=== PATIENT | male | born 1955 | race Caucasian/White ===

== ENCOUNTER 2017-09-27 09:41 | Inpatient (IN) | payer OTHER ==
[2017-09-27 10:15] LABS: Base Excess (BEa) 2.2 mEq/L (0 (+/-) 2.5); CO2 Tension 33.5 mmHg (35.0-45.0); Carboxyhemoglobin (COHb) 1.1 gm% (0.0-3.0); Hematocrit-ABG 44.6 % (42.0-52.0); Hemoglobin (Hb) 14.4 g/dL (14.0-18.0); O2 Tension (PaO2) 91.5 mmHg (80.0-100.0); pH, Arterial 7.49 (7.35-7.45)
[2017-09-27] MEDS ORDERED: levETIRAcetam In NaCl (Iso-Os) 1,000 MG in Premix Bag 1 BAG IVPB SCH (10:15)
[2017-09-27 10:16] LABS: Analyzer IN Cardio ER; Calcium, Ionized 1.1 mmol/L (1.12-1.30); Puncture Site RRA
[2017-09-27] MEDS ORDERED: Carbidopa/Levodopa 25-100 mg Tablet PER TUBE SCH (10:30)
--- NOTE | 2017-09-27 10:49 | RAD ---
PORTABLE AP CHEST: Date: 09/27/17 HISTORY: Intubated. COMPARISON: None available. FINDINGS: Endotracheal tube is noted in place with tip overlying the T4 vertebral body and well above the level of the hao. Cardiac silhouette and pulmonary vasculature are within normal limits. The lungs are clear. Osseous structures are intact. IMPRESSION: Endotracheal tube noted in place. There is no evidence of an acute cardiopulmonary process. POS: [facility]
[2017-09-27 10:56] LABS: Bilirubin Negative (Negative); Blood, Urine Negative (Negative); Glucose, Urine (Dipstick) Negative (Negative); Leukocyte Negative (Negative); Nitrite Negative (Negative); Protein, Urine (Dipstick) Negative (Neg-Trace); pH, Urine 6.5 (5.0-9.0)
[2017-09-27 11:00] LABS: Clarity Clear (Clear)
[2017-09-27 11:28] LABS: ALT (SGPT) 7 U/L (8-55); AST (SGOT) 12 U/L (5-34); Albumin 3.3 g/dL (3.4-4.8); Alkaline Phosphatase 72 U/L (40-150); Anion Gap 18 mmol/L (10-20); BUN (Urea Nitrogen) 9 mg/dL (8.4-25.7); Bilirubin, Total 0.7 mg/dL (0.2-1.2); CK (CPK) 181 U/L (30-200); Calc. Creatinine Clearance 0 mL/min (70-130); Calcium 8.6 mg/dL (7.8-10.44); Carbon Dioxide 22 mmol/L (23-31); Chloride 103 mmol/L (98-107); Estimated GFR-MDRD Greater than 90; Globulin 3.7 g/dL (2.4-3.5); Glucose 105 mg/dL (80-115); Lipase 15 U/L (8-78); Magnesium 1.8 mg/dL (1.6-2.6); Potassium 3.8 mmol/L (3.5-5.1); Sodium 139 mmol/L (136-145)
[2017-09-27 11:29] LABS: CKMB 1.6 ng/mL (0-6.6)
[2017-09-27 11:34] LABS: #Lymphocytes 1.2 thou/uL (1.20-3.40); #Monocytes 0.6 thou/uL (0.11-0.59); #Neutrophils 7.1 thou/uL (1.40-6.50); %Basophils 0.1 % (0.0-1.0); %Eosinophils 0.4 % (0.0-10.0); %Lymphocytes 13.1 % (21.0-51.0); %Monocytes 6.5 % (0.0-10.0); %Neutrophils 79.8 % (42.0-75.0); Hemoglobin 15.6 g/dL (14.0-18.0); Mean Corpuscular HGB CONC 31.9 g/dL (32.0-36.0); Mean Corpuscular Hemoglobin 31.2 pg (27.0-31.0); Mean Corpuscular Volume 97.8 fl (80.0-94.0); Mean Platelet Volume 6.7 fL (7.4-10.4); Platelet Count 226 thou/uL (130-400); RBC Distribution Width 12.2 % (11.5-14.5); White Blood Cell (WBC) Count 8.9 thou/uL (4.8-10.8)
[2017-09-27 11:45] LABS: INR-International Normal Ratio 1.8
[2017-09-27 11:46] LABS: PTT 36.5 SEC (22.9-36.1)
[2017-09-27] MEDS ORDERED: Lidocaine 1% PF 5 ML VIAL ONE (12:00)
[2017-09-27] MEDS ORDERED: Senokot 8.6 MG TAB PO PRN (12:11)
[2017-09-27] MEDS ORDERED: Bisacodyl 10 MG SUPP PR PRN (12:11)
[2017-09-27] MEDS ORDERED: Acetaminophen 650 MG Suppository PR PRN (12:11)
[2017-09-27] MEDS ORDERED: Ondansetron ODT 4 MG TAB PO PRN (12:11)
[2017-09-27] MEDS ORDERED: Ondansetron PF 4 MG/2 ML Vial IVP PRN (12:11)
[2017-09-27] MEDS ORDERED: Acetaminophen 325 MG TAB PO PRN (12:11)
[2017-09-27] MEDS ORDERED: Calcium Carbonate 500 MG ChewTAB PO PRN (12:11)
[2017-09-27] MEDS ORDERED: VANCOMYCIN IVPB PRN (12:18)
[2017-09-27] MEDS ORDERED: ABX IVPB PRN (12:18)
[2017-09-27] MEDS ORDERED: Sedation Protocol FS ONE (12:19)
[2017-09-27] MEDS ORDERED: CCU Electrolyte Replacement 1 EACH IVPB ONE (12:19)
[2017-09-27] MEDS ORDERED: Lacri-Lube Opth Oint 3.5 GM TUBE EA EYE PRN (12:19)
[2017-09-27] MEDS ORDERED: Vancomycin HCl 1 GM in Premix Bag 1 BAG IVPB SCH (12:30)
[2017-09-27] MEDS ORDERED: Magnesium 2 GM/NS 0.9% 100 ML 2 GM in Premix Bag 1 BAG IVPB PRN (12:33)
[2017-09-27] MEDS ORDERED: Potassium Phosphate 12 MMOL in Sodium Chloride 0.9% 250 ML 250 ML IV PRN (12:33)
[2017-09-27] MEDS ORDERED: Magnesium Oxide 400 MG TAB PO PRN ×2 (12:33)
[2017-09-27] MEDS ORDERED: Potassium Phosphate 9 MMOL in Sodium Chloride 0.9% 100 ML IVPB PRN (12:33)
[2017-09-27] MEDS ORDERED: Potassium Chloride 20 MEQ TAB PO PRN (12:33)
[2017-09-27] MEDS ORDERED: Potassium Phosphate 15 MMOL in Sodium Chloride 0.9% 250 ML 250 ML IV PRN (12:33)
[2017-09-27] MEDS ORDERED: CCU ELECTROLYTE REPLACEMENT PROTOCOL FS PRN (12:33)
[2017-09-27] MEDS ORDERED: Potassium Chloride 40 MEQ in Premix Bag 1 BAG IVPB PRN (12:33)
[2017-09-27] MEDS ORDERED: Fentanyl BOLUS 250 ML IVPB PRN (12:34)
[2017-09-27] MEDS ORDERED: DISCONTINUE PREVIOUS NARCOTIC PAIN MEDICATIONS AND BENZODIAZEPINES FS SCH (12:34)
[2017-09-27] MEDS ORDERED: Propofol 1,000 MG/100 ML VIAL IV PRN (12:34)
[2017-09-27] MEDS ORDERED: Lorazepam 2 MG/ML VIAL SLOW IVP PRN ×2 (12:34→14:35)
[2017-09-27] MEDS ORDERED: Acetaminophen 650 MG/20.3 ML UDCUP PO PRN (12:47)
[2017-09-27] MEDS ORDERED: Ampicillin 2 GM, Syringe 5.2 ML in Sterile Water 14.8 ML SLOW IVP SCH (13:00)
[2017-09-27] MEDS ORDERED: Ampicillin 2 GM in Sodium Chloride 0.9% 100 ML IVPB SCH (13:00)
[2017-09-27 13:11] LABS: CSF Source CSF; Tube # 4
[2017-09-27 13:12] LABS: Clarity Clear (Clear); RBC Count - Manual 52 /cumm (None Seen); WBC/NonHematics Count - Manual 1 /cumm (0-5)
[2017-09-27 13:18] LABS: CSF, Glucose 67 mg/dl (40-70); CSF, Protein 49 mg/dL (15-40)
[2017-09-27 13:20] LABS: CSF Source CSF; Clarity Clear (Clear); Tube # 1; WBC/NonHematics Count - Manual 1 /cumm (0-5)
[2017-09-27 13:21] LABS: RBC Count - Manual 112 /cumm (None Seen)
[2017-09-27 13:37] LABS: Color Of CSF Supernatant COLORLESS (Colorless); Tube # 2; Unspun CSF Color COLORLESS (Colorless)
[2017-09-27] MEDS: Dextrose 5 %-0.45 % NaCl 1,000 ML IV SCH ×2 (14:13→21:08)
[2017-09-27 14:51] LABS: Amphetamine Not Detected (NotDetected); Barbiturates Screen Detected (NotDetected); Benzodiazepine Screen Detected (NotDetected); Cocaine Metabolite Screen Not Detected (NotDetected); Medtox Control Line Valid? VALID (VALID); Medtox Reader # READER 4; Methadone Not Detected (NotDetected); Methamphetamine Not Detected (NotDetected); Opiate Screen Not Detected (NotDetected); Oxycodone Screen Not Detected (NotDetected); Phencyclidine (PCP) Not Detected (NotDetected); THC/Cannabinoid Screen Not Detected (NotDetected); Tricyclic Screen Not Detected (NotDetected)
[2017-09-27] MEDS ORDERED: Vancomycin HCl 1.5 GM in Sodium Chloride 0.9% 250 ML 300 ML IVPB SCH (15:00)
[2017-09-27] MEDS ORDERED: FLU VACC QS2017-18 36 mo. & older 0.5 ML SYRINGE IM ONE (15:45)
[2017-09-27 18:23] LABS: Lactic Acid 1.3 mmol/L (0.5-2.2)
[2017-09-27] MEDS: Vancomycin HCl 1.5 GM in Sodium Chloride 0.9% 250 ML 300 ML IVPB SCH (20:59)
[2017-09-27] MEDS: Famotidine/PF 20 mg/2ml Vial SLOW IVP SCH (21:00)
[2017-09-27] MEDS: levETIRAcetam In NaCl (Iso-Os) 1,000 MG in Premix Bag 1 BAG IVPB SCH (21:00)
[2017-09-27] MEDS: Meropenem 1 GM in Syringe 20 ML SLOW IVP SCH (21:52)
--- NOTE | 2017-09-27 23:24 | CON ---
DATE OF CONSULTATION: 09/27/2017 He is intubated in the vent, on Versed 5 mg. History is that he is in the shelter system in [place] and presented with altered mental status and apparently was seizing. Emergent CT was done which was negative. Please note I reviewed his eileen red medical notes from [place] and from the ER notes over a year. He has been here since almost 0 9:30 in the morning, arrived in the ER about 01:30. He had a lumbar puncture done. 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 MEDICATIONS: There is a long list of medicine that was brought in from his shelter notes which includ es carbidopa/levodopa 3 times a day, Coreg 1 twice a day 6.25, Levitra 500 three tablets 2 times a da y, omeprazole, oxybutynin, Zoloft 50, thiamine. PAST MEDICAL HISTORY: 1. History of varicella in the past. 2. History of positive PPD. 3. History of dementia. 4. History of epilepsy. 5. History of possible Parkinson's disease on . PAST SURGICAL HISTORY: Unobtainable. FAMILY HISTORY: Unremarkable. SOCIAL HISTORY: Unobtainable. REVIEW OF SYSTEMS: Unobtainable. PHYSICAL EXAMINATION: VITAL SIGNS: Intubated in the vent. Blood pressure 130/80, pulse is 100, respiration is 20. HEENT: His right pupil is 2 mm. His left pupil is about 4 mm, much larger, when I decreased sedatio n, he was appropriate, opened his eyes. CHEST: Decreased breath sounds, no wheezing. CARDIAC: Normal S1, S2. No gallops. ABDOMEN: Soft, no masses. EXTREMITIES: Reveal trace edema. LABORATORY DATA: White count 8.8, H and H 15 and 48, platelet count 226. A pO2 is 91, pCO2 33, pH 7 .49, rate of 14, 35% tidal volume. The electrolytes are normal. His BNP is normal. X-ray was clear . Drug screen was unremarkable. Flu test was negative. IMPRESSION: 1. Status probably poor compliance to medication. I doubt he has got any infection etiology. 2. History of dementia. 3. History of presumed Parkinson's. PLAN: I agree with present coverage of antibiotics, Keppra. Minimize sedation for next 24 to 48 hours, try to wean and extubate, await result of spinal tap. DVT prophylaxis, proton pump inhibitors. This is a 45-minute critical care time.
[2017-09-28] MEDS: Vancomycin HCl 1.5 GM in Sodium Chloride 0.9% 250 ML 300 ML IVPB SCH ×2 (04:25→12:14)
[2017-09-28] MEDS: Dextrose 5 %-0.45 % NaCl 1,000 ML IV SCH ×3 (05:00→22:10)
[2017-09-28 05:13] LABS: Lactic Acid 1.8 mmol/L (0.5-2.2)
[2017-09-28 05:15] LABS: #Eosinphils 0.1 thou/uL (0.0-0.7); #Lymphocytes 1.1 thou/uL (1.20-3.40); #Monocytes 0.6 thou/uL (0.11-0.59); #Neutrophils 7.6 thou/uL (1.40-6.50); %Basophils 0.2 % (0.0-1.0); %Lymphocytes 12.1 % (21.0-51.0); %Monocytes 5.9 % (0.0-10.0); %Neutrophils 80.7 % (42.0-75.0); Hemoglobin 14.1 g/dL (14.0-18.0); Mean Corpuscular HGB CONC 32.6 g/dL (32.0-36.0); Mean Corpuscular Hemoglobin 31.7 pg (27.0-31.0); Mean Corpuscular Volume 97.2 fl (80.0-94.0); Mean Platelet Volume 7.1 fL (7.4-10.4); Platelet Count 212 thou/uL (130-400); RBC Distribution Width 12.1 % (11.5-14.5); Red Blood Cell (RBC) Count 4.43 mill/uL (4.70-6.10); White Blood Cell (WBC) Count 9.4 thou/uL (4.8-10.8)
[2017-09-28 05:17] LABS: ALT (SGPT) Less than 7 U/L (8-55); AST (SGOT) 10 U/L (5-34); Albumin 3.1 g/dL (3.4-4.8); Alkaline Phosphatase 62 U/L (40-150); Anion Gap 15 mmol/L (10-20); BUN (Urea Nitrogen) 6 mg/dL (8.4-25.7); Bilirubin, Total 0.7 mg/dL (0.2-1.2); Calc. Creatinine Clearance 155 mL/min (70-130); Calcium 8.6 mg/dL (7.8-10.44); Carbon Dioxide 23 mmol/L (23-31); Chloride 103 mmol/L (98-107); Estimated GFR-MDRD Greater than 90; Globulin 3.8 g/dL (2.4-3.5); Glucose 113 mg/dL (80-115); Magnesium 1.7 mg/dL (1.6-2.6); Protein, Total 6.9 g/dL (5.8-8.1); Sodium 138 mmol/L (136-145)
[2017-09-28 05:28] LABS: Potassium 2.9 mmol/L (3.5-5.1)
[2017-09-28] MEDS ORDERED: cefTRIAXone\\ROCEPHIN 2 GM in Sodium Chloride 0.9% 100 ML IVPB SCH ×2 (06:00→11:00)
[2017-09-28 06:13] VITALS: BP 133/67
[2017-09-28] MEDS: Potassium Chloride 40 MEQ in Sodium Chloride 0.9% 250 ML 250 ML IVPB PRN (06:28)
[2017-09-28] MEDS: Meropenem 1 GM in Syringe 20 ML SLOW IVP SCH ×3 (06:31→21:53)
[2017-09-28 07:40] LABS: Actual Bicarbonate (HCO3a) 19.6 mEq/L (22-26); Base Excess (BEa) 1.3 mEq/L (0 (+/-) 2.5); CO2 Tension 18.6 mmHg (35.0-45.0); Hematocrit-ABG 42.7 % (42.0-52.0); Hemoglobin (Hb) 14.3 g/dL (14.0-18.0); O2 Tension (PaO2) 75.9 mmHg (80.0-100.0); pH, Arterial 7.64 (7.35-7.45)
[2017-09-28 07:41] LABS: Calcium, Ionized 1.1 mmol/L (1.12-1.30); Potassium - ABG Lab 2.6 mmol/L (3.70-5.30); Puncture Site RRA
--- NOTE | 2017-09-28 08:15 | RAD ---
PORTABLE AP CHEST: Date: 09/28/17 HISTORY: On ventilator. Follow-up evaluation. COMPARISON: 09/27/17. FINDINGS: Endotracheal tube remains in place and unchanged in position. There has been interval placement of a nasogastric tube which courses into the left upper quadrant. Tip is not visualized. The most proximal side hole is also not well evaluated on this exam due to technique. Cardiac silhouette and pulmonary vasculature are within normal limits. Linear densities are seen at the left lung base, which may be related to mild atelectasis or scarring. The lungs are otherwise clear. There has been no other inter oz change. IMPRESSION: 1. Linear scarring versus atelectasis left lung base. There is otherwise no acute cardiopulmonary pr ocess. 2. Endotracheal tube is similar in position. POS: [facility]
--- NOTE | 2017-09-28 08:17 | HP ---
DATE OF ADMISSION: 09/27/2017 The patient was seen and examined on 09/27/2017. PRIMARY CARE PHYSICIAN: Patient is an inmate. REASON FOR ADMISSION/CHIEF COMPLAINT: Transfer from [facility] Emergency Room for seizure and respiratory failure. HISTORY OF PRESENT ILLNESS: Patient is a 62-year-old white male with history of seizure disorder and dementia, was brought in to [facility] with seizure. History obtained from the ER chart as patient is intubated and mechanically ventilated. Around 3 a.m., patient was found to have seizures. He was intubated prior to reaching emergency room. CT scan of the brain was negative for any acute findings. He was unresponsive. No other details available. PAST MEDICAL HISTORY: 1. Dementia. 2. Seizure disorder. PAST SURGICAL HISTORY: Unavailable at this time. ALLERGIES: The patient is allergic to PENICILLIN per ER record. CURRENT HOME MEDICATIONS: To be verified with the assisted system. SOCIAL HISTORY: Cannot be obtained from the patient due to current cognition. FAMILY HISTORY: Cannot be obtained from the patient due to current cognition. REVIEW OF SYSTEMS: Cannot be obtained from the patient due to current cognition. PHYSICAL EXAMINATION: VITAL SIGNS: In the emergency room showed temperature 100.1 rectal, respirations 17, pulse 71, blood pressure 145/81 with O2 saturation of 92% on mechanical ventilation. GENERAL: A 62-year-old male, intubated and sedated on mechanical ventilation. HEENT: Head is atraumatic, normocephalic. Pupils were sluggishly reacting to light. There was angle ract in the left eye. Pupils are unequal. NECK: Supple, no JVD, no neck stiffness. LUNGS: Coarse breath sounds bilaterally. No wheezing. Lungs were symmetrical. ABDOMEN: Soft. Bowel sounds present. No guarding or rigidity. HEART: S1 and S2 present. Regular rate and rhythm. No significant rubs or gallops appreciated. EXTREMITIES: No edema or calf tenderness. NEUROLOGIC: Examination could not be done due to sedation. PSYCHIATRIC: Examination could not be done due to sedation. SKIN: Warm and dry. LYMPH NODES: No palpable lymph nodes in the neck. PERIPHERAL VASCULAR: Radial pulses palpable bilaterally. MUSCULOSKELETAL: No joint swelling or tenderness. LABORATORY DATA AND IMAGING DATA: Urine drug screen was negative. WBC 7.2 with hemoglobin 14.9, dennys telet count 277. INR was 1.7 at outside facility. Electrolytes were essentially in normal range wit h creatinine 0.8, albumin 3.5. Urine drug screen positive for barbiturates. BNP was 167. Lactic ac id at [facility] was 3.2. Ammonia was 67 at [facility]. Telemetry monitoring by my review showed si nus rhythm. Chest x-ray by my review was negative for infiltrate. IMPRESSION: 1. Status epilepticus requiring intubation. 2. Acute respiratory failure secondary to #1, currently on mechanical ventilation. 3. History of seizure disorder. 4. Elevated troponins, probably secondary to demand ischemia, down trending. 5. History of dementia. 6. Coagulopathy of unclear etiology. 7. Elevated ammonia at outside facility. 8. Lactic acidosis, probably secondary to seizure. PLAN: Patient will be monitored in the Intensive Care Unit. Critical Care will be consulted. Lumba r puncture has been done. Neurology consult. We will continue Keppra 1000 mg twice a day. Empirica lly cover him on antibiotics with meropenem and vancomycin. Ventilation sedation protocol. Electrol yte replacement protocol. Recheck ammonia after 24-48 hours. Plan of care was discussed with the patient and the guards.
[2017-09-28] MEDS ORDERED: DC Sedation Protocol FS ONE (08:48)
[2017-09-28] MEDS: levETIRAcetam In NaCl (Iso-Os) 1,000 MG in Premix Bag 1 BAG IVPB SCH (08:50)
[2017-09-28] MEDS: Famotidine/PF 20 mg/2ml Vial SLOW IVP SCH ×2 (08:51→21:54)
[2017-09-28 12:07] LABS: INR-International Normal Ratio 1.6; Prothrombin Time 19.5 SEC (12.0-14.7)
[2017-09-28 12:08] LABS: PTT 39.7 SEC (22.9-36.1)
--- NOTE | 2017-09-28 12:13 | PRG ---
DATE OF SERVICE: 09/28/2017 SUBJECTIVE: This morning, he is encephalopathic on the vent. X-ray is clear. Normal seizure activi ty. OBJECTIVE: VITAL SIGNS: Blood pressure 128/69, pulse 79, respiratory rate 20. He is afebrile, 99. CHEST: Reveals decreased breath sounds, no wheezing. CARDIAC: Normal S1 and S2, no gallops. LABORATORY DATA: X-rays normal. White count 9000, H and H 14 and 43, platelet count normal. PO2 wa s 75, pCO2 57.4 at a rate of 14. Potassium 2.9, otherwise rest of his labs normal. CSF was unremarkable. No white cell, glucose protein was normal. IMPRESSION: 1. Apparently seizure activity. 2. Parkinson's. 3. Fever. 4. No evidence of meningitis. PLAN: I would deescalate his antibiotics. I did not see an obvious source of sepsis infection at th is time. Wean and extubate. Restart home medication including his seizure medication. We will follow. One-half hour critical care time.
[2017-09-28] MEDS: Carbidopa/Levodopa 25-250 mg Tablet PER TUBE SCH ×2 (16:05→21:54)
[2017-09-28] MEDS: Carvedilol 3.125 MG TAB PER TUBE SCH (16:14)
--- NOTE | 2017-09-28 16:42 | CON ---
DATE OF CONSULTATION: 09/28/2017 NEUROLOGY CONSULTATION CONSULTING PHYSICIAN: Hospitalist Service. IMPRESSION: 1. Seizure disorder. 2. Parkinson's disease. 3. Dementia. PLAN: 1. Continue Keppra 1000 mg twice a day. 2. Swallow evaluation. HISTORY OF PRESENT ILLNESS: Mr. Howe is an elderly gentleman, who was brought in to [facility] due to seizure activity. Reportedly, he has a history of seizures, but is uncertain as to how well they were controlled. He was apparently taking Keppra 500 mg twice a day prior to admission. He was transferred here for further care. He was given Versed in the emergency room as well as a marilu ding dose of Keppra 1000 mg IV. He has not had any further seizures since admission according to [facility] staff. He has not been cooperative and answering any questions. PAST MEDICAL HISTORY: As listed above. MEDICATIONS: Medication list was reviewed. SOCIAL HISTORY: He is an inmate. No tobacco or alcohol use is known. FAMILY HISTORY: Unknown. REVIEW OF SYSTEMS: Not obtainable. PHYSICAL EXAMINATION: VITAL SIGNS: Blood pressure 144/70, pulse 69, respirations 16. He is afebrile. HEENT: Pupils equal and reactive. Conjunctivae clear. NECK: No lymphadenopathy. EXTREMITIES: No edema or cyanosis. NEUROLOGIC: If we get him to speak few words here and there, but he would not follow commands and co operate in any way with answering questions as to his medical care. There is no facial asymmetry not ed. His muscle tone seemed to be relatively equal. I did not notice any tremor. LABORATORY STUDIES: Reviewed. SUMMARY: This is an elderly man with a reported history of seizures. Keppra has been increased to 1 000 twice a day, seems to be stable. I will continue the current regimen and determine whether his s wallowing is adequate.
[2017-09-28] MEDS: Oxybutynin 5 MG TAB PER TUBE SCH (21:54)
[2017-09-28] MEDS: levETIRAcetam In NaCl (Iso-Os) 1,500 MG in Premix Bag 1 BAG IVPB SCH (22:10)
--- NOTE | 2017-09-28 22:21 | PDOC.PN ---
- Subjective Encounter Start Date: 09/28/17 Encounter Start Time: 13:30 Patient seen and examined. Extubated. Not answering appropriately. No overnight events - Objective Resuscitation Status: Resuscitation Status FULL:Full Resuscitation MAR Reviewed: Yes Vital Signs & Weight: Vital Signs (12 hours) Temp Pulse Ox 09/28/17 16:00 98.9 F 09/28/17 12:00 98 Weight Weight 191 lb 12.835 oz Most Recent Monitor Data Heart Rate from ECG 90 NIBP 125/56 NIBP BP-Mean 72 Respiration from ECG 16 SpO2 98 I&O: 09/27/17 09/28/17 09/29/17 06:59 06:59 06:59 Intake Total 1782.3 1479 Output Total 1945 1070 Balance -162.7 409 Result Diagrams: 09/29/17 04:20 09/29/17 04:20 Additional Labs: Accuchecks 09/28/17 09/28/17 09/28/17 21:53 12:25 03:53 POC Glucose 119 H 143 H 104 09/27/17 23:56 POC Glucose 91 Radiology Reviewed by me: Yes (CXR - ?scarring at left base) EKG Reviewed by me: Yes (Tele SR) Phys Exam - Physical Examination Constitutional: NAD Respiratory: no wheezing, no rales, no rhonchi Symmetrical Cardiovascular: RRR, no rub Gastrointestinal: soft, non-tender, positive bowel sounds Musculoskeletal: no edema Neuro/Psych - Cannot assess due to current mentation Dx/Plan - Plan DVT proph w/SCDs IMPRESSION: 1. Status epilepticus requiring intubation. 2. Acute respiratory failure secondary to #1, currently on mechanical ventilation. 3. History of seizure disorder. 4. Elevated troponins, probably secondary to demand ischemia, down trending. 5. History of dementia. 6. Coagulopathy of unclear etiology. ?nutritional 7. Elevated ammonia at outside facility. 8. Lactic acidosis, probably secondary to seizure. PLAN: * Neuro input appreciated. * Cont Keppra * Add Dilantin - Pt was to be started on Dilantin per d/w RN with facility * Monitor for seizure * Extubated * PIER MASTER eval * Tube feeds if needed * Cont to monitor * Critical care following * Hold Heparin/Lovenox due to Coagulopathy Review of Systems - Review of Systems Other: Cannot obtain due to current cognition - Medications/Allergies Allergies/Adverse Reactions: Allergies Allergy/AdvReac Type Severity Reaction Status Date / Time Penicillins Allergy unknown Verified 09/27/17 13:42 Medications: Current Medications Acetaminophen (Tylenol) 650 mg MT Q4H PRN PRN Reason: Headache/Fever or Pain Acetaminophen (Tylenol Elixir) 650 mg PO Q6H PRN PRN Reason: Fever>101/MILD Pain Bisacodyl (Dulcolax) 10 mg MT Q24H PRN PRN Reason: Constipation Calcium Carbonate (Tums) 1,000 mg PO Q4H PRN PRN Reason: Heartburn or Indigestion Carbidopa/Levodopa (Sinemet 25-250) 1 tab PER TUBE TID [facility] Last Admin: 09/28/17 21:54 Dose: 1 tab Carvedilol (Coreg) 3.125 mg PER TUBE BID-WM [facility] Last Admin: 09/28/17 16:14 Dose: 3.125 mg Enoxaparin Sodium (Lovenox) 40 mg SC 0900 [facility] Famotidine (Pepcid) 20 mg SLOW IVP Q12HR [facility] Last Admin: 09/28/17 21:54 Dose: 20 mg Dextrose/Sodium Chloride (D5 1/2 Ns) 1,000 mls @ 125 mls/hr IV .Q8H [facility] Last Admin: 09/28/17 22:10 Dose: 1,000 mls Potassium Chloride 40 meq/ (Sodium Chloride) 270 mls @ 135 mls/hr IVPB ASDIR PRN PRN Reason: FOR SERUM K+ 2.5 - 3.5 Last Admin: 09/28/17 06:28 Dose: 270 mls Potassium Chloride 40 meq/ (Device) 100 mls @ 50 mls/hr IVPB ASDIR PRN PRN Reason: FOR SERUM K+ 2.5 - 3.5 Magnesium Sulfate 1 gm/ Sodium (Chloride) 102 mls @ 102 mls/hr IV PRN PRN PRN Reason: MAG LEVEL 1.4 - 2.0 Last Admin: 09/28/17 09:03 Dose: 102 mls Magnesium Sulfate 2 gm/ Device 100 mls @ 100 mls/hr IVPB ASDIR PRN PRN Reason: MAGNESIUM < 1.4 Potassium Phosphate 9 mmol/ (Sodium Chloride) 103 mls @ 25.75 mls/hr IVPB ASDIR PRN PRN Reason: Phosphate 1.0-1.8 Potassium Phosphate 12 mmol/ (Sodium Chloride) 254 mls @ 63.5 mls/hr IV ASDIR PRN PRN Reason: Serum phosphate 0.5-0.9 Potassium Phosphate 15 mmol/ (Sodium Chloride) 255 mls @ 63.75 mls/hr IV ASDIR PRN PRN Reason: Serum Phos < 0.5 Meropenem 1 gm/ Syringe 20 mls @ 240 mls/hr SLOW IVP Q8HR [facility] Last Admin: 09/28/17 21:53 Dose: 20 mls Levetiracetam 1,500 mg/ Device 100 mls @ 133.333 mls/hr IVPB BID [facility] Last Admin: 09/28/17 22:10 Dose: 100 mls Lorazepam (Ativan) 1 mg SLOW IVP Q15MIN PRN PRN Reason: Seizures Magnesium Oxide (Magnesium Oxide) 400 mg PO BIDPRN PRN PRN Reason: FOR SERUM MAG 1.4 - 2.0 Magnesium Oxide (Magnesium Oxide) 800 mg PO PRN PRN PRN Reason: FOR SERUM MAG < 1.4 Mineral Oil/White Petrolatum (Lacri-Lube Ointment) 0 gm EA EYE PRN PRN PRN Reason: Dry Eyes Miscellaneous Medication (Pharmacy To Dose) 1 each IVPB DAILYPRN PRN PRN Reason: LABS Miscellaneous Medication (Phos-Nak) 1 pkt PO TIDPRN PRN PRN Reason: FOR PHOS LEVEL 1.0 - 1.8 Miscellaneous Medication (Phos-Nak) 2 pkt PO TIDPRN PRN PRN Reason: FOR PHOS LEVEL 0.5 - 1.0 Ccu Electrolyte (Replacement Protocol) 0 each FS PRN PRN PRN Reason: FOR ELECTROLYTE REPLACEMENT Ondansetron HCl (Zofran Odt) 4 mg PO Q6H PRN PRN Reason: Nausea/Vomiting Ondansetron HCl (Zofran) 4 mg IVP Q6H PRN PRN Reason: Nausea/Vomiting Oxybutynin Chloride (Ditropan) 5 mg PER TUBE BID [facility] Last Admin: 09/28/17 21:54 Dose: 5 mg Phenytoin Sodium (Dilantin) 100 mg PER TUBE TID [facility] Last Admin: 09/28/17 21:55 Dose: 100 mg Potassium Chloride (K-Dur) 40 meq PO ASDIR PRN PRN Reason: FOR SERUM K+ 2.5 - 3.5 Potassium Chloride (Klor-Con) 40 meq PER TUBE ASDIR PRN PRN Reason: FOR SERUM K+ 2.5-3.5 Last Admin: 09/28/17 21:54 Dose: 40 meq Senna (Senokot) 2 tab PO HSPRN PRN PRN Reason: Constipation Sertraline HCl (Zoloft) 150 mg PER TUBE DAILY CECIL Sodium Chloride (Flush - Normal Saline) 10 ml IVF PRN PRN PRN Reason: Saline Flush Thiamine HCl (Thiamine) 100 mg PER TUBE DAILY CECIL
[2017-09-29 04:43] LABS: #Eosinphils 0.2 thou/uL (0.0-0.7); #Lymphocytes 0.7 thou/uL (1.20-3.40); #Monocytes 0.4 thou/uL (0.11-0.59); #Neutrophils 4.8 thou/uL (1.40-6.50); %Basophils 0.2 % (0.0-1.0); %Eosinophils 3.8 % (0.0-10.0); %Lymphocytes 10.9 % (21.0-51.0); %Monocytes 6.4 % (0.0-10.0); %Neutrophils 78.8 % (42.0-75.0); Hemoglobin 12.8 g/dL (14.0-18.0); Mean Platelet Volume 6.9 fL (7.4-10.4); Platelet Count 193 thou/uL (130-400); RBC Distribution Width 12.1 % (11.5-14.5)
[2017-09-29 05:20] LABS: ALT (SGPT) Less than 7 U/L (8-55); AST (SGOT) 10 U/L (5-34); Albumin 2.9 g/dL (3.4-4.8); Alkaline Phosphatase 52 U/L (40-150); Anion Gap 6 mmol/L (10-20); BUN (Urea Nitrogen) 4 mg/dL (8.4-25.7); Bilirubin, Total 0.5 mg/dL (0.2-1.2); Calc. Creatinine Clearance 166 mL/min (70-130); Carbon Dioxide 29 mmol/L (23-31); Chloride 109 mmol/L (98-107); Estimated GFR-MDRD Greater than 90; Globulin 3.4 g/dL (2.4-3.5); Glucose 115 mg/dL (80-115); Potassium 3.1 mmol/L (3.5-5.1); Protein, Total 6.3 g/dL (5.8-8.1); Sodium 141 mmol/L (136-145)
[2017-09-29] MEDS: Meropenem 1 GM in Syringe 20 ML SLOW IVP SCH (05:42)
[2017-09-29] MEDS: Carvedilol 3.125 MG TAB PER TUBE SCH ×2 (08:00→12:49)
--- NOTE | 2017-09-29 08:39 | PRG ---
DATE OF SERVICE: 09/29/2017 This morning he is awake, alert, responsive, in no distress. No further seizure activity. PHYSICAL EXAMINATION: VITAL SIGNS: Blood pressure 112/65, sats 90%, pulse 58, respirations 18. I's & O's have been good, 2430 in. CHEST: No wheezing. CARDIAC: Normal S1, S2. ABDOMEN: Soft, no masses. LABORATORY DATA: White count 6, H&H 12 and 38, platelet count normal. Electrolytes are normal. Mehran robiology: All cultures are negative. IMPRESSION: Seizure activity, no evidence of meningitis. PLAN: Discontinue all antibiotics. He can be transferred out of the ICU, transfer back to [facility].
[2017-09-29] MEDS ORDERED: Enoxaparin Sodium 40 MG/0.4 ML SYRINGE SC SCH (09:00)
[2017-09-29] MEDS: Dextrose 5 %-0.45 % NaCl 1,000 ML IV SCH ×3 (10:10→19:30)
[2017-09-29] MEDS: Carbidopa/Levodopa 25-250 mg Tablet PER TUBE SCH ×3 (10:11→19:29)
[2017-09-29] MEDS: levETIRAcetam In NaCl (Iso-Os) 1,500 MG in Premix Bag 1 BAG IVPB SCH ×2 (10:13→19:30)
[2017-09-29] MEDS: Oxybutynin 5 MG TAB PER TUBE SCH ×2 (10:23→19:31)
[2017-09-29] MEDS: Famotidine/PF 20 mg/2ml Vial SLOW IVP SCH (10:31)
[2017-09-29] MEDS: Potassium Chloride 40 MEQ in Sodium Chloride 0.9% 250 ML 250 ML IVPB PRN (10:48)
[2017-09-29] MEDS ORDERED: cefTRIAXone\\ROCEPHIN 1 GM in Sodium Chloride 0.9% 100 ML IVPB SCH (11:15)
[2017-09-29] MEDS ORDERED: cefTRIAXone\\ROCEPHIN 1 GM, Syringe 0.4 ML in Sterile Water 9.6 ML SLOW IVP SCH (12:00)
[2017-09-29 15:40] VITALS: BMI 24.5
--- NOTE | 2017-09-29 16:44 | DIS ---
DATE OF DISCHARGE: 09/29/2017 FOLLOWUP: Follow up with primary care physician and Neurology at the facility. Dilantin and Keppra level after 1 week is recommended. Primary care physician is advised to follow. INPATIENT CONSULTANTS: 1. Neurology, Dr. Marie. 2. Critical Care, Dr. Valencia. BRIEF HOSPITAL COURSE: The patient is a 62-year-old male with seizure disorder, who was brought in [facility] for seizure. He was intubated by EMS. Please refer to the history an d physical dated 09/27/2017 for further details. The patient was admitted to the Intensive Care Unit with a diagnosis of status epilepticus requiring mechanical intubation. His Keppra level was 37. According to the facility, the patient was supposed to be on Dilantin, which has not been started. He also received a loading dose of Dilantin. [facility] Kepp[facility] dose was 1500 b.i.d. The dose has been increased to 200 every morning and 1500 at night. He will also start Dilantin 300 mg at bedtime. He will follow up with Neurology after 1 week or so. Keppra and Dilantin level after 1 week is recommended, primary care physician is advised to follow. Infectious etiology has been ruled out. His CSF and blood cultures have been negative. Urine cultu re is positive for gram positive cocci and gram negative carina. His urinalysis; however, was negative for wbc and bacteria. He was on IV meropenem during this hospital stay, which will be changed to Kaveh trim. He has been cleared by consultants for discharge. FINAL DIAGNOSES: 1. Status epilepticus, resolved. 2. Acute respiratory failure secondary to status epilepticus, extubated yesterday. 3. History of seizure disorder. 4. Elevated troponins, probably secondary to demand ischemia. 5. Dementia. 6. Coagulopathy of unclear etiology, probably nutritional. 7. Elevated ammonia at the outside facility at 67. Repeat ammonia was normal. 8. Lactic acidosis secondary to seizure. 9. Urinary tract infection, suspected. 10. Hypokalemia. 11. Mild protein calorie malnutrition. Plan of care was discussed with the patient and he stated understanding. Total time coordinating the discharge of this patient was 38 minutes.
[2017-09-30 06:23] VITALS: TEMP 98.1
== END 2017-09-30 07:40 | DRG 208 ==
LOC: ERS 09:41 → CCU 11:41
PROVIDERS: ADMIT Internal Medicine; ATTEND Internal Medicine
PROC: 5A1945Z Respiratory Ventilation, 24-96 Consecutive Hours (ICD-10-PCS; principal; 2017-09-27)
PROC: 00JU3ZZ Inspection of Spinal Canal, Percutaneous Approach (ICD-10-PCS; 2017-09-27)
DX: J96.00 Acute respiratory failure, unspecified whether with hypoxia or hypercapnia (principal); D68.9 Coagulation defect, unspecified; G20 Parkinson's disease; E44.1 Mild protein-calorie malnutrition; N39.0 Urinary tract infection, site not specified; G40.901 Epilepsy, unspecified, not intractable, with status epilepticus; F02.80 Dementia in other diseases classified elsewhere, unspecified severity, without behavioral disturbance, psychotic disturbance, mood disturbance, and anxiety; Z88.0 Allergy status to penicillin; E87.6 Hypokalemia
CPT/HCPCS: 36415; 36416; 62270; 71045; 80053; 80177; 80185; 80306; 81003; 82140; 82550; 82553; 82805; 82945; 83605; 83690; 83735; 83880; 84157; 84484; 85025; 85610; 85730; 86140; 87040; 87070; 87077; 87086; 87186; 87205; 87633; 87798; 87804; 89051; 90471; 90682; 94002; 94003; 96365; 96366; 96367; 96374; 96375; A4216; G0008; G8996-GN-CL; G8997-GN-CJ; J0290; J0696; J1953; J2001; J2185; J2405; J2704; J3370; J3475; J3480; J7050; Q2009; Q2036; S0028

== ENCOUNTER 2018-11-08 16:55 | Inpatient (IN) | payer OTHER ==
[2018-11-08] MEDS ORDERED: Ondansetron PF 4 MG/2 ML Vial IVP PRN (17:00)
[2018-11-08] MEDS ORDERED: Ondansetron ODT 4 MG TAB SL PRN (17:00)
[2018-11-08] MEDS ORDERED: Acetaminophen 325 MG TAB PO PRN (17:00)
[2018-11-08] MEDS ORDERED: Acetaminophen 650 MG Suppository ONE (18:11)
--- NOTE | 2018-11-08 18:24 | PDOC.FPRHP ---
- History of Present Illness Chief Complaint: Seizures, pneumonia History of Present Illness: Mr Howe is a 63yo male with pmh epilepsy, Parkinson's, dementia, HTN presenting as a transfer from [facility] for pneumonia and seizures. He has a hx epilepsy treated with Keppra and Depakote. His levels were low at outside hospital. Pt has seizure at unit and was transferred to [facility]. There he had another seizure. According to documentation pt at baseline is A&O x1. In records EMS stated pt was found down foaming at mouth and has not been acting right since that time. According to security he is not at his baseline. Attempted to call unit but after multiple transfers was told medical staff have went home for the day that there is no one available to speak with. Only information obtainable from pt is that he is cold. ED Course: Versed 2mg, Ativan 0.5mg, Keppra 1000mg, Tylenol 650mg, Versed 2mg, 500ml bolus NS, Levaquin 500mg BNP 92 Valproic acid: 26.6 Phenytoin <1.0 CXR- findings suggestive of congestive failure Brain CT: limited study w/o evidence for mass producing intracranial hemorrhage Rapid flu neg - Allergies/Adverse Reactions Allergies Allergy/AdvReac Type Severity Reaction Status Date / Time Penicillins Allergy unknown Verified 09/27/17 13:42 - Home Medications Medication Instructions Recorded Confirmed Type Carbidopa/Levodopa 1 tablet PO TID 09/27/17 09/27/17 History [Carbidopa-Levodopa 25-250 Tab] Carvedilol [Coreg] 6.25 mg PO BID 09/27/17 09/27/17 History Omeprazole 20 mg PO DAILY 09/27/17 09/27/17 History Oxybutynin Chloride 5 mg PO BID 09/27/17 09/27/17 History Sertraline HCl 150 mg PO DAILY 09/27/17 09/27/17 History Thiamine HCl [B-1] 100 mg PO DAILY 09/27/17 09/27/17 History Phenytoin Sodium Extended 300 mg PO HS #1 cap 09/29/17 Rx [Dilantin] Sulfamethoxazole/Trimethoprim 1 tab PO BID #14 tab 09/29/17 Rx [Bactrim DS] levETIRAcetam [Keppra] 1,500 mg PO QAM #1 tablet 09/29/17 Rx levETIRAcetam [Keppra] 2,000 mg PO QPM #1 tablet 09/29/17 Rx - History PMHx: epilepsy, Parkinson's, dementia, HTN, inactive TB PSHx: Pacemaker placement FHx: Unable to obtain Social: Unable to obtain. Appears pt has not hx of smoking according to documents. - Review of Systems ROS unobtainable: due to mental status - Vital signs BP: 135/71 HR: 87 RR: 18 Tmax: 101 Pox: 99% on RA Wt: 77kg - Physical Exam Constitutional: NAD -Constitutional: Unable to state name. Able to follow some simple commands such as to open eyes HEENT: normocephalic and atraumatic, conjunctiva clear Neck: supple, trachea midline Heart: RRR, no murmurs/rubs/gallops, pulses present, no edema Lungs: CTAB, no respiratory distress, good air movement, no wheezing Abdomen: soft, bowel sounds present Musculoskeletal: normal structure, normal tone, other (pt in handcuffs. Unable to test full ROM) Neurological: other (Able to move all 4 extremities. Able to state "I'm cold" No gaze preferance.) Skin: no rash/lesions, good turgor FMR H&P: Results - Radiology Interpretation Chest x-ray Status: report reviewed by me Additional comment: Findings suggestive of congestive failure CT scan - head Status: report reviewed by me Additional comment: Limited study w/o evidence for mass producing intracranial hemorrhage FMR H&P: A/P - Problem List (1) Encephalopathy Current Visit: Yes Status: Acute Code(s): G93.40 - ENCEPHALOPATHY, UNSPECIFIED (2) Seizure Current Visit: No Status: Acute Code(s): R56.9 - UNSPECIFIED CONVULSIONS (3) Pneumonia Current Visit: Yes Status: Acute Code(s): J18.9 - PNEUMONIA, UNSPECIFIED ORGANISM (4) Parkinsons Current Visit: Yes Status: Chronic Code(s): G20 - PARKINSON'S DISEASE (5) Dementia Current Visit: Yes Status: Chronic Code(s): F03.90 - UNSPECIFIED DEMENTIA WITHOUT BEHAVIORAL DISTURBANCE (6) HTN (hypertension) Current Visit: Yes Status: Chronic Code(s): I10 - ESSENTIAL (PRIMARY) HYPERTENSION (7) GERD (gastroesophageal reflux disease) Current Visit: Yes Status: Chronic Code(s): K21.9 - GASTRO-ESOPHAGEAL REFLUX DISEASE WITHOUT ESOPHAGITIS (8) Epilepsy Current Visit: Yes Status: Chronic Code(s): G40.909 - EPILEPSY, UNSP, NOT INTRACTABLE, WITHOUT STATUS EPILEPTICUS - Plan Mr Howe is a 63yo male with pmh epilepsy, Parkinson's, dementia, HTN presenting as a transfer from [facility] for pneumonia and seizures. Seizures, Hx of Epilepsy - OSH labs: Dilantin <1, Valproic acid: 26.6. Ammonia 50 - CT normal - Per security pt is not at baseline mental status although he has received multiple doses of versed and ativan - Reportedly takes Valproic acid and Keppra - Levels low on OSH labs, Dilantin <1, - Pt received 1g Keppra at OSH - Will obtain Keppra trough - Stroke precautions - Consulted Neuro - Admit to stroke SIRS without a source of infection - CXR with no signs of pneumonia, lung exam CTA b/l, 99% on RA - UA with rare bacteria, Urine culture pending - Blood cultures pending - s/p Levaquin at OSH for suspected pneumonia - Will obtain procalc and RVP - Called and spoke with Radiology and Anesthesia to organize LP, pt will require sedation due to AMS and inability to cooperate. - Not concerned for pneumonia, will not start antibiotics at this point - Will obtain repeat CXR as we only have the read not images Latent TB - Unknown if pt has received tx, documented in transfer records HTN - Pt does not appear to be on antiHTN meds - Will monitor overnight and call for Med rec in AM Parkinson's - Does not appear to be on meds for this Dementia - A&O x1 at baseline - Manage encephalopathy as above Code Status: FULL DVT ppx: SCDs PCP: [facility] FMR H&P: Upper Level - Pertinent history 62 y/o M w/ PMHx of poorly controlled seizure disorder presents as a transfer from [facility] for unwitnessed seizure. Pt was reportedly found in his cell unresponsive and foaming at the mouth per guards. Pt will not answer questions and keeps repeating Im cold Mamma and also does not follow commands. Hx obtained from gaurds and outside ER reports as they spoke w/ nursing staff at the [facility]. Attempted to contact [facility] to speak with them ourselves, but medical staff had already left for the day. Per guards and ER report, patient was brought to the ER and had another witnessed tonic clonic seizure which lasted for approx.. 3 minutes and he was given Ativan and he was loaded w/ keppra. CXR showing come increased pulm vascular congestion and outside ER concerned for possible PNA and he was started on Levaquin. CT brain was obtained showing no mass defect. Pt required versed to undergo brain CT. Guards note that patient has hx of dementia. Per outside ER report, they spoke to nursing staff at the [facility] who states patient is A&Ox1 at baseline and usually just stands at his [facility] cell door. Hx of prior hospital admission 2017 for status requiring mechanical intubation and stay in the ICU for what appears to be 24-48 hours. Pt was noted to be febrile to 101 degF in the ER upon arrival to [facility] and he was given 650 mg of rectal tylenol. - Pertinent findings EKG No evidence of acute ischemia. NSR. CXR Findings suggestive of congestive failure. No focal consolidation, pleural fluid, or PTX CT-Brain W/O Limited study w/o evidence for mass producing intracranial hemorrhage. Limited by motion artifact. (Only outside report available for review, at this time do not have images) WBC 6.3 Hgb 14.1 Hct 41.8 Plt 144 Na 135 Cl 98 CO2 27 BUN 24 Cr 0.7 NH4 50 BNP - 92 CK 151 Dilantin level - < 1.0 Depakote level 26.6 UDS Richter-negative PE: GEN: Laying in bed on side, will not answer questions, will not follow commands. NAD. Repetitive phrase Im cold mamma. Noted to have dermal piloerection. HEENT: Asymmetry of pupil size. L pupil > R pupil. Reactive to light b/l. Chronic per outside ER records CARDS: RRR, no murmur, rubs, or gallops PULM: CTA-B/l, no wheezes, rales, or rhonci. Good overall air movement. GI: Soft, no rigidity, no rebound EXT: No over LE edema DERM: No overt rashes, irritation around wrists and ankles b/l near NEURO: Appears to be moving all extremities equally. Does not follow-commands. Does not answer questions. GCS 12 ([id number]). No overt facial droop. - Plan Date/Time: 11/08/18 182 Guilherme Galindo. Paul Harris MD, have evaluated this patient and agree with findings/plan as outlined by web marketing intern resident. Pertinent changes/additions are listed here. 62 y/o M w/: 1. Generalized seizures 2/2 poorly controlled epilepsy vs infection - Reportedly patient did regain baseline per outside ER reports, but was given Ativan and loaded with Keppra which could be exacerbating his underlying dementia w/ current state not at baseline per guards. - Will continue w/ Keppra and plan to consult neurology in the AM for further medication management - Admit to stroke/inpt and place on seizure precautions - Currently w/ GCS of 12 and in no acute resp. distress. - Pt did have subtherapeutic levels of Dilantin and Depakote level, but supposedly only on keppra per outside records and no keppra level obtained. Depakote level was 26.6, so patient is probably taking this as well, but we don t have report of this, but prior admission does state he was on Already loaded on keppra. Will check a random level. If subtherapeutic, likely subtherapeutic prior to being loaded. 2. SIRS w/o obvious source of infection - Unsure at this time if fever is associated w/ seizure or not at this point - Technically meets sepsis criteria w/ Initial HR >90 and temp to 101 degF at outside ER - Will give IVF at maintenance and monitor UOP w/ strict I/Os - Doubt PNA given no infiltrate on official CXR read. Will obtain Pro-bia to help differentiate - Pt is in a high risk population for meningitis with fever and seizure w/o overt source. Will consult IR and anesthesia for LP under moderate sedation as patient will not follow commands. - U/A w/ rare bacteria and neg LE and neg Nitrite, but w/ hx of UTI in the past making this a possible source - BCX and UCX obtained. CSF labs obtained as well. - Will check Viral URI panel 3. Other chronic medical conditions per web marketing intern note Addendum - Attending - Attending Attestation Date/Time: 11/08/18 2200 I personally evaluated the patient and discussed the management with Dr. Baxter /Kimberly. I agree with the History, Examination, Assessment and Plan documented above with any addition or exceptions noted below. Patient with history of epilepsy, Parkinson's disease, and apparent dementia here with breakthrough seizures despite chronic AED therapy and concern for infection. He meets SIRS criteria. History difficult to obtain due to patient baseline mentation and inability to contact inmate's unit to obtain history. There was apparently some concern for pneumonia, but his CXR here is clear and his PCT is reassuring. We have a respiratory viral panel pending. He did meet SIRS criteria at one time given his temperature and HR, now improved. He has been seizure free since arrival here but he is somnolent, consider medication effect. Due to his breakthrough seizures, concern for change in mental status, and no obvious source of infection, will begin on possible Meningitis treatment and obtain LP via IR. They report that they will not be able to do the procedure until the AM, but will not defer treatment until that time. Continue infection workup, seizure monitoring. Continue Keppra and Depakote. Will work to obtain more history tomorrow from his unit. No focal neurological deficits at this time.
[2018-11-08] MEDS ORDERED: Lorazepam 2 MG/ML VIAL SLOW IVP PRN (19:32)
--- NOTE | 2018-11-08 20:07 | RAD ---
SUPINE PORTABLE FRONTAL CHEST RADIOGRAPH: 11/08/2018 HISTORY: Possible pneumonia. COMPARISON: 09/28/2017 FINDINGS: Supine imaging limits assessment for pneumothorax and pleural fluid. There is mild pulmonary vascula r prominence. A skin fold is noted within the lateral aspect of the left hemithorax. There is no lo bar consolidation or alveolar edema. IMPRESSION: Pulmonary vascular congestion with no focal consolidation. If symptoms persist, posterior-anterior a nd lateral imaging of the chest is recommended. POS: LENORAH
[2018-11-08] MEDS: Lactated Ringer's 1,000 ML IV SCH (22:31)
[2018-11-08] MEDS: cefTRIAXone\\ROCEPHIN 2 GM in Sodium Chloride 0.9% 100 ML IVPB SCH (22:33)
[2018-11-08] MEDS: levETIRAcetam In NaCl (Iso-Os) 1,000 MG in Premix Bag 1 BAG IVPB SCH (22:36)
[2018-11-08] MEDS: Sodium Chloride 0.9% 1,000 ML IV SCH (22:53)
[2018-11-08] MEDS: Valproate Sodium 250 MG in Sodium Chloride 0.9% 100 ML IVPB SCH (23:39)
[2018-11-09] MEDS: Sodium Chloride 0.9% 1,000 ML IV SCH (00:24)
[2018-11-09 02:26] VITALS: BMI 31.7
[2018-11-09 04:33] LABS: #Monocytes 0.9 thou/uL (0.11-0.59); #Neutrophils 5.9 thou/uL (1.40-6.50); %Basophils 0.2 % (0.0-1.0); %Eosinophils 0.1 % (0.0-10.0); %Lymphocytes 13.1 % (21.0-51.0); %Monocytes 11.6 % (0.0-10.0); Hemoglobin 12.7 g/dL (14.0-18.0); Mean Corpuscular HGB CONC 33.6 g/dL (32.0-36.0); Mean Corpuscular Hemoglobin 32.1 pg (27.0-31.0); Mean Corpuscular Volume 95.4 fL (78.0-98.0); Mean Platelet Volume 8.2 fL (7.4-10.4); Platelet Count 132 thou/uL (130-400); RBC Distribution Width 12.8 % (11.5-14.5); Red Blood Cell (RBC) Count 3.95 mill/uL (4.70-6.10); White Blood Cell (WBC) Count 7.8 thou/uL (4.8-10.8)
[2018-11-09] MEDS ORDERED: Acetaminophen 650 MG Suppository PR PRN (04:50)
[2018-11-09 04:54] LABS: Anion Gap 14 mmol/L (10-20); BUN (Urea Nitrogen) 16 mg/dL (8.4-25.7); Calc. Creatinine Clearance 137 mL/min (70-130); Calcium 8.4 mg/dL (7.8-10.44); Carbon Dioxide 24 mmol/L (23-31); Chloride 102 mmol/L (98-107); Estimated GFR-MDRD Greater than 90; Glucose 106 mg/dL (80-115); Potassium 3.9 mmol/L (3.5-5.1); Sodium 136 mmol/L (136-145)
--- NOTE | 2018-11-09 06:30 | PDOC.FM ---
- Subjective Subjective: This morning patient is arousable to sternal rub. STates "stop bothering me, leave me the hell alone." Patient can state his name, but he does not know where he is at nor the year. After talking with nurse from [facility] she states he does have baseline dementia and gets confused at times but usually knows he is in [facility] and his name. She states he is able to have basic conversations with him at baseline. She states he often has "breakthrough seizures" for a few seconds but usually does not have post-ictal states like this one which is why she rec'd he be sent to hospital for evaluation. - Objective Vital Signs & Weight: Vital Signs (12 hours) Temp Pulse Resp BP BP Pulse Ox 11/09/18 03:50 100.0 F H 84 16 108/55 L 94 L 11/08/18 23:40 99.3 F 92 18 131/66 98 11/08/18 19:22 100.4 F H 91 20 155/74 H 96 Weight Weight 94.8 kg Result Diagrams: 11/09/18 04:24 11/09/18 04:25 Phys Exam - Physical Examination Constitutional: NAD HEENT: PERRLA, moist MMs Neck: no nodes, full ROM Respiratory: no wheezing, no rales, clear to auscultation bilateral Cardiovascular: RRR, no significant murmur Gastrointestinal: soft, non-tender, no distention, positive bowel sounds Musculoskeletal: no edema, pulses present Neurological: non-focal, moves all 4 limbs Deviation from normal: AxO x1, non-cooperative Skin: no rash, cap refill <2 seconds Dx/Plan (1) Encephalopathy Code(s): G93.40 - ENCEPHALOPATHY, UNSPECIFIED Status: Acute (2) Dementia Code(s): F03.90 - UNSPECIFIED DEMENTIA WITHOUT BEHAVIORAL DISTURBANCE Status: Chronic (3) Epilepsy Code(s): G40.909 - EPILEPSY, UNSP, NOT INTRACTABLE, WITHOUT STATUS EPILEPTICUS Status: Chronic (4) HTN (hypertension) Code(s): I10 - ESSENTIAL (PRIMARY) HYPERTENSION Status: Chronic (5) Parkinsons Code(s): G20 - PARKINSON'S DISEASE Status: Chronic (6) Seizure Code(s): R56.9 - UNSPECIFIED CONVULSIONS Status: Acute - Plan Plan: Seizures, Hx of Epilepsy - OSH labs: Dilantin <1, Valproic acid: 26.6. Ammonia 50 - CT non-contrast: no acute process - received ativan, versed at outside facility for tx of seizure - SIRS + febrile + AMS without clear source, will pursue LP to r/o meningitis SIRS without a source of infection - CXR with no signs of pneumonia, lung exam CTA b/l, 99% on RA - UA with rare bacteria, Urine culture pending - Blood cultures pending - procal 0.06 - s/p Levaquin at OSH for suspected pneumonia - resp viral panel pending Latent TB - per [facility] staff, had positve PPD but f/u testing was negative - records requested, they state they will fax this AM HTN - no home meds, will follow Parkinson's - no meds on med list Dementia - appears to be AxOx2 at baseline per penitentiary staff Code Status: FULL DVT ppx: SCDs PCP: [facility] Addendum - Attending - Attending Attestation Date/Time: 11/09/18 0648 I personally evaluated the patient and discussed the management with Dr. Lassiter. I agree with the History, Examination, Assessment and Plan documented above with any addition or exceptions noted below. Patient more awake this morning and able to answer questions appropriately. Reports that he "wants a beer or shot of whiskey". Declines to answer other questions. Does not complain of headache or neck stiffness. Knows that he is here because of "seizure". Infection workup overall negative and WBC and PCT continue to be reassuring. Due to fever and breakthrough seizures, working to get LP set up through IR and continuing abx for now. Viral panel pending to see if this is simply a viral process. Continue to monitor in stroke unit with seizure precautions. Neurology consulted in ER.
[2018-11-09] MEDS: Valproate Sodium 250 MG in Sodium Chloride 0.9% 100 ML IVPB SCH ×4 (06:31→16:41)
[2018-11-09] MEDS: Lactated Ringer's 1,000 ML IV SCH (06:58)
[2018-11-09] MEDS: levETIRAcetam In NaCl (Iso-Os) 1,000 MG in Premix Bag 1 BAG IVPB SCH ×2 (09:49→21:47)
--- NOTE | 2018-11-09 11:05 | PDOC.EVN ---
Event Note - Event Note Event Note: reviewed notes faxed from [facility] this AM updated most recent home med list- compliance ranged from 86-92% divalproex 500 bid keppra 1500 am, 1000 HS omeprazole 20mg daily sertraline 100mg daily thiamine 100mg prem Reviewed tele-neurology note from February 2018 hx of seizures and dementia previously admitted for suspected meningitis was having hallucinations was on keppra and dilantin at that time
[2018-11-09] MEDS: Divalproex Sodium DR 500 MG TAB PO SCH (21:38)
[2018-11-09] MEDS: levETIRAcetam 500 MG TAB PO SCH (21:38)
[2018-11-09] MEDS: cefTRIAXone\\ROCEPHIN 2 GM in Sodium Chloride 0.9% 100 ML IVPB SCH ×2 (21:39→23:57)
[2018-11-10] MEDS: Valproate Sodium 250 MG in Sodium Chloride 0.9% 100 ML IVPB SCH (00:30)
--- NOTE | 2018-11-10 06:25 | PDOC.FM ---
- Subjective Subjective: This morning patient is AxOx2 and much more conversant than yesterday. He knows his name, knows he is in [facility], and requests for his shackles to be loosened because he feels they are too tight. He does not know he's in a hospital nor the year. The patient denies pain this AM and denies any problem eating or drinking. Denies headaches or seizures overnight. - Objective Vital Signs & Weight: Vital Signs (12 hours) Temp Pulse Resp BP Pulse Ox 11/10/18 04:00 97.9 F 66 16 136/80 93 L 11/10/18 00:00 97.2 F L 85 16 117/57 L 94 L 11/09/18 20:57 98 11/09/18 20:00 98.1 F 86 16 119/71 98 Weight Weight 94.8 kg I&O: 11/08/18 11/09/18 11/10/18 06:59 06:59 06:59 Intake Total 732 540 Output Total 200 Balance 732 340 Result Diagrams: 11/09/18 04:24 11/09/18 04:25 Phys Exam - Physical Examination Constitutional: NAD HEENT: PERRLA, moist MMs Neck: no nodes, full ROM Respiratory: no wheezing Cardiovascular: RRR, no significant murmur Gastrointestinal: soft, non-tender, no distention, positive bowel sounds Musculoskeletal: no edema, pulses present Neurological: non-focal, moves all 4 limbs Psychiatric: normal affect, A&O x 3 Skin: no rash, cap refill <2 seconds Dx/Plan (1) Encephalopathy Code(s): G93.40 - ENCEPHALOPATHY, UNSPECIFIED Status: Acute (2) Dementia Code(s): F03.90 - UNSPECIFIED DEMENTIA WITHOUT BEHAVIORAL DISTURBANCE Status: Chronic (3) Epilepsy Code(s): G40.909 - EPILEPSY, UNSP, NOT INTRACTABLE, WITHOUT STATUS EPILEPTICUS Status: Chronic (4) HTN (hypertension) Code(s): I10 - ESSENTIAL (PRIMARY) HYPERTENSION Status: Chronic (5) Parkinsons Code(s): G20 - PARKINSON'S DISEASE Status: Chronic (6) Seizure Code(s): R56.9 - UNSPECIFIED CONVULSIONS Status: Acute - Plan Plan: Seizures, Hx of Epilepsy - OSH labs: Dilantin <1, Valproic acid: 26.6. Ammonia 50 - CT non-contrast: no acute process - received ativan, versed at outside facility for tx of seizure - Mental status improved this AM, seems to be at about baseline going off of description from shelter nurse - went up on keppra to 1,500mg BID - will await neuro eval before d/c SIRS-resolved - fever could have been 2/2 seizures - CXR with no signs of pneumonia, lung exam CTA b/l, 99% on RA - UA with rare bacteria, Urine culture pending - Blood cultures pending - procal 0.06 - s/p Levaquin at OSH for suspected pneumonia - resp viral panel negative Latent TB - per shelter staff, had positve PPD but f/u testing was negative HTN - no home meds, will follow Parkinson's - no meds on med list Dementia - appears to be AxOx2 at baseline per shelter staff Code Status: FULL DVT ppx: SCDs PCP: [facility] Dispo: stable for d/c pending neuro eval Addendum - Attending - Attending Attestation Date/Time: 11/10/18 9573 I personally evaluated the patient and discussed the management with Dr. Lassiter. I agree with the History, Examination, Assessment and Plan documented above with any addition or exceptions noted below. Patient without further fever or seizure activity. RVP negative. Awaiting Neurology recommendations. Suspect that some of his breakthrough activity may have been due to medication noncompliance. No complaints this morning.
[2018-11-10] MEDS: levETIRAcetam 500 MG TAB PO SCH ×2 (09:24→20:19)
[2018-11-10] MEDS: Divalproex Sodium DR 500 MG TAB PO SCH ×2 (09:25→20:19)
--- NOTE | 2018-11-10 12:55 | PDOC.EVN ---
Event Note - Event Note Event Note: communicated with Dr. Marie states ok for d/c continue keppra 1500 mg BID f/u iwth tele-neurology in 1-2 weeks
--- NOTE | 2018-11-10 15:11 | DIS ---
DATE OF ADMISSION: 11/08/2018 DATE OF DISCHARGE: 11/10/2018 RESIDENT: Scott Lassiter MD ADMITTING ATTENDING: David Branham MD DISCHARGE ATTENDING: David Branham MD CONSULT: Neurology, Dr. Marie. PROCEDURES: None. PRIMARY DIAGNOSIS: Epilepsy. SECONDARY DIAGNOSES: 1. Parkinson's. 2. Dementia. 3. Hypertension. 4. Encephalopathy. 5. Systemic inflammatory response syndrome, resolved. DISCHARGE MEDICATIONS: 1. Keppra 1500 mg b.i.d. 2. Sertraline 100 mg daily. 3. Thiamine 100 mg daily. 4. Omeprazole 20 mg daily. 5. Divalproex 500 mg p.o. b.i.d. DISCONTINUED MEDICATIONS: None, increased the dose of Keppra. HISTORY OF PRESENT ILLNESS/HOSPITAL COURSE: This is a 63-year-old gentleman with history of dementia secondary to Parkinson disease as well as epilepsy. Based on the report from the long-term nurse, who cares for him appears that he is A and O x2 at baseline. He was sent to the ER for evaluation after having a prolonged seizure with postictal state. In the ER, he received Versed 2 mg, Ativan 0.5 mg, Keppra 1000 mg, another dose of Versed 2 mg, as well as a dose of Levaquin. The patient was found to be febrile in the ER and the above medications did not break his seizures. The patient was A and O x1 at the time of admission. He was denying pain. He was nonfocal at that time. Throughout the stay, the patient's fever resolved. He was found to have a normal white count. Procal was found to be 0.06 and chest x-ray was not suggestive of acute process. Based on protocol and normal white count, it appears that this was not an infectious source. The patient's neck was supple throughout the stay and his mental status also improved. He was A and O x2 at the time of discharge and moved all limbs without difficulty. He was able to respond to basic questions. I spoke with Dr. Marie, who agreed with increasing the dose of the patient's Keppra and discharging him for followup to Teleneurology at the long-term. DISPOSITION: Stable. DISCHARGE INSTRUCTIONS: LOCATION: [facility]. DIET: Regular. ACTIVITY: As tolerated. FOLLOWUP: Teleneurology in 1 to 2 weeks, primary care provider in 3 to 5 days. Increased Keppra to 1500 mg b.i.d. No other medication changes at this visit. Job ID: [id number]
[2018-11-10 21:13] VITALS: BP 134/60; TEMP 98.2
[2018-11-10] MEDS: cefTRIAXone\\ROCEPHIN 2 GM in Sodium Chloride 0.9% 100 ML IVPB SCH (21:48)
== END 2018-11-10 21:23 | DRG 101 ==
LOC: ERS 16:55 → OBSVTOIN 17:45 → 2SE 17:45
PROVIDERS: ADMIT Student in an Organized Health Care Education/Training Program; ATTEND Student in an Organized Health Care Education/Training Program
DX: G40.909 Epilepsy, unspecified, not intractable, without status epilepticus (principal); R65.10 Systemic inflammatory response syndrome (SIRS) of non-infectious origin without acute organ dysfunction; G20 Parkinson's disease; F02.80 Dementia in other diseases classified elsewhere, unspecified severity, without behavioral disturbance, psychotic disturbance, mood disturbance, and anxiety; K21.9 Gastro-esophageal reflux disease without esophagitis; I10 Essential (primary) hypertension; Z88.0 Allergy status to penicillin; Z79.899 Other long term (current) drug therapy
CPT/HCPCS: 36415; 71045; 80048; 80164; 80177; 82140; 84145; 85025; 87633; 87798; 90471; 90686; 93005; 99285; G0008; J0696; J1953; J2060; J7050